=== PATIENT | male | born 1945 | race Caucasian/White ===

== ENCOUNTER 2019-12-14 14:53 | Emergency (ER) | payer BC, MEDICARE, OTHER ==
[~2019-12-14] VITALS: Ht 177.8 cm; Wt 63.5 kg
[2019-12-14 14:53] VITALS: BP 112/65
--- NOTE | 2019-12-14 15:00 | NUR ---
BIB FAMILY C/O GENERALIZED WEAKNESS, ABDOMINAL DISTENSION. PT AAOX3, VSS. RR EVEN & UNLABORED. DENIES CP, SOB, DIZZINESS, N/V/D AT THIS TIME. AWAITING EVAL BY ERMD. WILL CONT TO MONITOR.
[2019-12-14] MEDS ORDERED: IV NS 0.9% 250 ML IV ONE (15:27)
[2019-12-14] MEDS ORDERED: IOHEXOL-300 100 ML VIAL IV ONE (15:27)
[2019-12-14 15:33] LABS: BASOPHILS % (AUTO) 0.9 % (0.0-2.0); HEMATOCRIT 39 % (39-51); HEMOGLOBIN 12.9 g/dL (13.5-17.5); LYMPHOCYTES # (AUTO) 0.4 /CMM (0.8-4.8); LYMPHOCYTES % (AUTO) 18.1 % (20.0-44.0); MEAN CORPUSCULAR HGB CONC 33 g/dl (31.0-36.0); MEAN CORPUSCULAR VOLUME 95 fL (80-96); MONOCYTES # (AUTO) 0.2 /CMM (0.1-1.30); MONOCYTES % (AUTO) 9.2 % (2.0-12.0); NEUTROPHILS # (AUTO) 1.3 /CMM (1.8-8.9); NEUTROPHILS % (AUTO) 65.8 % (43.0-81.0); RED BLOOD CELL COUNT(AUTO) 4.12 MIL/uL (4.5-6.0)
[2019-12-14 15:46] LABS: PLATELET COUNT (AUTO) 45 /CMM (150-450)
[2019-12-14 15:49] LABS: CALCIUM, SERUM 8.6 mg/dL (8.5-10.1); CARBON DIOXIDE 27 mmol/L (21-32); CHLORIDE 106 mmol/L (98-107); GLUCOSE 95 mg/dL (74-106); SODIUM SERUM 139 mmol/L (136-145); UREA NITROGEN, BLOOD 9 mg/dL (7-18)
[2019-12-14 15:54] LABS: ALANINE AMINOTRANSFERASE 20 U/L (12-78); ALBUMIN 3.2 g/dL (3.4-5.0); ALKALINE PHOSPHATASE 72 U/L (46-116); ASPARTATE AMINOTRANSFERASE 29 U/L (15-37); BILIRUBIN,DIRECT 0.3 mg/dL (0.0-0.2); BILIRUBIN,TOTAL 0.9 mg/dL (0.2-1.0); LIPASE 168 U/L (73-393); TOTAL PROTEIN, SERUM 7.2 g/dL (6.4-8.2)
[2019-12-14] MEDS ORDERED: IV NS 0.9% 500 ML BAG IV ONE (16:00)
[2019-12-14 16:10] LABS: SERUM AMMONIA 31 umol/L (11-32)
[2019-12-14] MEDS ORDERED: FERR325T24 PO (16:27)
[2019-12-14] MEDS ORDERED: GABA-532 PO (16:27)
[2019-12-14] MEDS ORDERED: CHOL100040 PO (16:27)
[2019-12-14] MEDS ORDERED: HYDR-4354 PO (16:27)
[2019-12-14] MEDS ORDERED: ALPR0.255 PO (16:27)
[2019-12-14] MEDS ORDERED: CALC500T52 PO (16:27)
[2019-12-14] MEDS ORDERED: DOCU250C14 PO (16:27)
[2019-12-14] MEDS ORDERED: TRAZ-182 PO (16:27)
[2019-12-14] MEDS ORDERED: SERT100T12 PO (16:27)
[2019-12-14] MEDS ORDERED: BUSP30TA2 PO (16:27)
[2019-12-14] MEDS ORDERED: OMEP40CA13 PO (16:27)
[2019-12-14] MEDS ORDERED: FOLI0.4T2 PO (16:28)
--- NOTE | 2019-12-14 16:47 | NUR ---
PT SIGNED AMA FORM. DR. SALMERON AWARE. IV removed. Catheter intact and site benign. Pressure and 4x4 applied to site. No bleeding noted.
[2019-12-14 17:58] LABS: EOSINOPHILS % (MANUAL) 4 % (0-4); LYMPHOCYTES % (MANUAL) 30 % (16-48); MONOCYTES % (MANUAL) 2 % (0-11.0); NEUTROPHILS % (MANUAL) 64 (42-76)
== END 2019-12-14 16:49 | disposition left against medical advice (07) ==
LOC: ER 14:53
DX: D69.6 Thrombocytopenia, unspecified (principal); D72.819 Decreased white blood cell count, unspecified; R10.9 Unspecified abdominal pain; Z98.890 Other specified postprocedural states; Z79.899 Other long term (current) drug therapy
CPT/HCPCS: 74177; 80048; 80076; 82140; 83690; 84484; 85025; 85730; 99285; J7050; Q9967